=== PATIENT | male | born 1960 | race Caucasian/White ===

== ENCOUNTER → 2016-07-25 | Outpatient (CLI) | payer BC ==
[~2016-07-25] MED LIST: FERROUS SU325 MG/TAB PO; FLEXERIL 1010 MG/TAB PO; MOBIC15 MG PO; NEURONTIN300 MG/CAP PO; NIFEREX-15150 MG/CAP PO; NORCO 325 MG-7.1 TAB PO; PERCOCET 325 MG1 TA2 PO; PROTONIX 40MG T40 MG PO; ULTRAM 50MG TAB50 MG PO
== END ==
LOC: COL.RAD 13:00
DX: I77.810 Thoracic aortic ectasia (principal); M54.6 Pain in thoracic spine
CPT/HCPCS: Q9967

== ENCOUNTER 2016-08-17 23:04 | Emergency (ER) | payer BC ==
[~2016-08-17] VITALS: Ht 175.3 cm; Wt 74.5 kg
[2016-08-17 23:07] VITALS: BP 141/88; TEMP 97.7
[2016-08-17] MEDS ORDERED: FLEXERIL 1010 MG/TAB PO (23:20)
[2016-08-17] MEDS ORDERED: NORCO 325 MG-7.1 TAB PO (23:20)
[2016-08-17] MEDS ORDERED: MOBIC15 MG PO (23:21)
[2016-08-17] MEDS ORDERED: NEURONTIN300 MG/CAP PO (23:58)
[2016-08-17] MEDS ORDERED: ULTRAM 50MG TAB50 MG PO (23:58)
[2016-08-17] MEDS ORDERED: PERCOCET 325 MG1 TA2 PO (23:58)
[2016-08-18 00:25] VITALS: PULSE 56
== END 2016-08-18 00:25 | disposition home or self-care (01) ==
LOC: COL.ER 23:04
DX: M54.89 Other dorsalgia (principal)
CPT/HCPCS: J1885

== ENCOUNTER 2016-08-21 18:48 | Inpatient (IN) | payer BC ==
[~2016-08-21] VITALS: Ht 175.3 cm; Wt 78.6 kg
[~2016-08-21 18:48] MED LIST changes: -FERROUS SU325 MG/TAB PO; -NIFEREX-15150 MG/CAP PO; -PROTONIX 40MG T40 MG PO
[2016-08-21 19:15] VITALS: BP 111/66; PULSE 77
[2016-08-21 19:22] LABS: BASO # 0.1 (0.0-0.2); BASO % 0.3 % (0.0-2.0); EOS % 0.2 % (0-4.0); GRAN # 13.3 (1.4-6.5); GRAN % 82.9 % (42.2-75.2); HEMATOCRIT 28.9 % (42.0-52.0); LYMPH # 1.3 (1.2-3.4); LYMPH % 7.9 % (20.0-51.0); MEAN CELL VOLUME 100 fl (80.0-100.0); MEAN CORPUSCULAR HEMOGLOBIN 35 pg (27.0-31.0); MEAN CORPUSCULAR HGB CONC 35 g/dl (33.0-37.0); MEAN PLATELET VOLUME 8.4 fl (7.4-10.4); MONO # 1.3 (0.1-0.6); MONO % 8.1 % (1.7-9.3); PLATELET COUNT 266 K/mm3 (130-400); RED BLOOD COUNT 2.88 M/mm3 (4.20-5.60); REDCELL DISTRIBUTION WIDTH-CV 12.6 % (11.5-14.5); WHITE BLOOD COUNT 16.1 K/mm3 (4.8-10.8)
[2016-08-21 19:24] LABS: INR 1.1 (0.8-3.0); PROTHROMBIN TIME 12.5 SECONDS (9.7-12.8)
[2016-08-21 19:26] LABS: PARTIAL THROMBOPLASTIN TIME 31.6 SECONDS (26.0-37.0)
[2016-08-21 19:28] LABS: ADJUSTED CALCIUM 9.5 mg/dL (8.4-10.2); ALBUMIN 2.8 gm/dL (3.5-5.0); BILIRUBIN,TOTAL 0.4 mg/dL (0.0-1.0); CALCIUM 8.5 mg/dL (8.4-10.2); CREATININE, serum 0.97 mg/dL (0.66-1.25); POTASSIUM 4.6 mmol/L (3.4-5.0); TOTAL PROTEIN 5.3 gm/dL (6.4-8.2)
[2016-08-21 19:40] LABS: TROPONIN-I 0.013 ng/mL (0.000-0.034)
[2016-08-21 20:16] VITALS: BP 120/72; PULSE 78
[2016-08-22] VITALS (317 sets, daily range): BP systolic 83–123; BP diastolic 33–74; PULSE 71–89; TEMP 97–99.4; O2SAT 76–100
[2016-08-22 07:54] LABS: BASO % 0.4 % (0.0-2.0); EOS # 0.1 (0.0-0.7); EOS % 1.3 % (0-4.0); GRAN # 5.6 (1.4-6.5); GRAN % 68.2 % (42.2-75.2); LYMPH # 1.7 (1.2-3.4); LYMPH % 20.3 % (20.0-51.0); MEAN CELL VOLUME 101 fl (80.0-100.0); MEAN CORPUSCULAR HGB CONC 34 g/dl (33.0-37.0); MEAN PLATELET VOLUME 8.5 fl (7.4-10.4); MONO # 0.8 (0.1-0.6); MONO % 9.3 % (1.7-9.3); PLATELET COUNT 233 K/mm3 (130-400); RED BLOOD COUNT 2.32 M/mm3 (4.20-5.60); REDCELL DISTRIBUTION WIDTH-CV 12.9 % (11.5-14.5); WHITE BLOOD COUNT 8.3 K/mm3 (4.8-10.8)
[2016-08-22 07:56] LABS: HEMATOCRIT 23.4 % (42.0-52.0); HEMOGLOBIN 7.9 g/dl (13.5-18.0); MEAN CORPUSCULAR HEMOGLOBIN 34 pg (27.0-31.0)
[2016-08-22 09:40] LABS: CALCIUM 8.2 mg/dL (8.4-10.2); CREATININE, serum 0.75 mg/dL (0.66-1.25); POTASSIUM 4.2 mmol/L (3.4-5.0)
[2016-08-22 18:51] LABS: HEMOGLOBIN 4.7 g/dl (13.5-18.0)
[2016-08-23] VITALS (1198 sets, daily range): BP systolic 86–133; BP diastolic 4–79; PULSE 53–84; TEMP 98.5–99.7; O2SAT 80–100
[2016-08-23 03:24] LABS: HEMATOCRIT 22.8 % (42.0-52.0); HEMOGLOBIN 7.7 g/dl (13.5-18.0)
[2016-08-23 08:05] LABS: BASO # 0.1 (0.0-0.2); BASO % 0.6 % (0.0-2.0); EOS # 0.1 (0.0-0.7); EOS % 1.1 % (0-4.0); GRAN # 6.3 (1.4-6.5); GRAN % 69.4 % (42.2-75.2); LYMPH # 1.8 (1.2-3.4); LYMPH % 19.4 % (20.0-51.0); MEAN CORPUSCULAR HGB CONC 35 g/dl (33.0-37.0); MEAN PLATELET VOLUME 9.4 fl (7.4-10.4); MONO # 0.8 (0.1-0.6); MONO % 8.8 % (1.7-9.3); RED BLOOD COUNT 2.43 M/mm3 (4.20-5.60); REDCELL DISTRIBUTION WIDTH-CV 17.4 % (11.5-14.5); WHITE BLOOD COUNT 9.1 K/mm3 (4.8-10.8)
[2016-08-23 08:10] LABS: HEMATOCRIT 21.7 % (42.0-52.0); HEMOGLOBIN 7.5 g/dl (13.5-18.0); MEAN CELL VOLUME 89 fl (80.0-100.0); MEAN CORPUSCULAR HEMOGLOBIN 31 pg (27.0-31.0)
[2016-08-23 08:11] LABS: PLATELET COUNT 132 K/mm3 (130-400)
[2016-08-23 08:12] LABS: ADJUSTED CALCIUM 9.1 mg/dL (8.4-10.2); ALBUMIN 1.6 gm/dL (3.5-5.0); BILIRUBIN,TOTAL 0.7 mg/dL (0.0-1.0); CALCIUM 7.2 mg/dL (8.4-10.2); CREATININE, serum 0.8 mg/dL (0.66-1.25); MAGNESIUM 1.7 mg/dL (1.6-2.3); POTASSIUM 4.2 mmol/L (3.4-5.0); TOTAL PROTEIN 3.4 gm/dL (6.4-8.2)
[2016-08-23 15:04] LABS: HEMATOCRIT 21.4 % (42.0-52.0); HEMOGLOBIN 7.2 g/dl (13.5-18.0)
[2016-08-23 21:42] LABS: HEMATOCRIT 19.8 % (42.0-52.0); HEMOGLOBIN 6.6 g/dl (13.5-18.0)
[2016-08-24] VITALS (1017 sets, daily range): BP systolic 67–116; BP diastolic 50–80; PULSE 57–78; TEMP 97.8–98.9; O2SAT 67–100
[2016-08-24 01:07] LABS: HEMATOCRIT 22.1 % (42.0-52.0); HEMOGLOBIN 7.5 g/dl (13.5-18.0)
[2016-08-24 03:15] LABS: BASO # 0.1 (0.0-0.2); BASO % 0.6 % (0.0-2.0); EOS # 0.3 (0.0-0.7); EOS % 2.3 % (0-4.0); GRAN # 5.5 (1.4-6.5); GRAN % 51.1 % (42.2-75.2); LYMPH # 4.1 (1.2-3.4); LYMPH % 37.6 % (20.0-51.0); MEAN CELL VOLUME 91 fl (80.0-100.0); MEAN CORPUSCULAR HGB CONC 33 g/dl (33.0-37.0); MEAN PLATELET VOLUME 9.5 fl (7.4-10.4); MONO # 0.9 (0.1-0.6); MONO % 7.8 % (1.7-9.3); PLATELET COUNT 144 K/mm3 (130-400); RED BLOOD COUNT 2.46 M/mm3 (4.20-5.60); REDCELL DISTRIBUTION WIDTH-CV 17.4 % (11.5-14.5); WHITE BLOOD COUNT 10.8 K/mm3 (4.8-10.8)
[2016-08-24 03:16] LABS: HEMATOCRIT 22.3 % (42.0-52.0); HEMOGLOBIN 7.4 g/dl (13.5-18.0); MEAN CORPUSCULAR HEMOGLOBIN 30 pg (27.0-31.0)
[2016-08-24 03:33] LABS: TROPONIN-I 0.015 ng/mL (0.000-0.034)
[2016-08-24 07:55] LABS: CALCIUM 6.8 mg/dL (8.4-10.2); CREATININE, serum 0.68 mg/dL (0.66-1.25); MAGNESIUM 1.5 mg/dL (1.6-2.3)
[2016-08-24 08:00] LABS: BASO % 0.2 % (0.0-2.0); EOS # 0.1 (0.0-0.7); EOS % 1.2 % (0-4.0); GRAN # 8.2 (1.4-6.5); GRAN % 73.2 % (42.2-75.2); LYMPH # 1.9 (1.2-3.4); LYMPH % 16.8 % (20.0-51.0); MEAN CELL VOLUME 92 fl (80.0-100.0); MEAN CORPUSCULAR HGB CONC 33 g/dl (33.0-37.0); MEAN PLATELET VOLUME 9.7 fl (7.4-10.4); MONO # 0.9 (0.1-0.6); MONO % 7.8 % (1.7-9.3); PLATELET COUNT 123 K/mm3 (130-400); REDCELL DISTRIBUTION WIDTH-CV 17.3 % (11.5-14.5); WHITE BLOOD COUNT 11.3 K/mm3 (4.8-10.8)
[2016-08-24 08:07] LABS: HEMATOCRIT 14.7 % (42.0-52.0); HEMOGLOBIN 4.9 g/dl (13.5-18.0); MEAN CORPUSCULAR HEMOGLOBIN 31 pg (27.0-31.0)
[2016-08-24 18:05] LABS: HEMATOCRIT 22.3 % (42.0-52.0); HEMOGLOBIN 7.7 g/dl (13.5-18.0)
[2016-08-25] VITALS (864 sets, daily range): BP systolic 105–117; BP diastolic 45–70; PULSE 56–92; TEMP 97.5–99.6; O2SAT 65–100
[2016-08-25 00:19] LABS: HEMATOCRIT 19.6 % (42.0-52.0); HEMOGLOBIN 6.8 g/dl (13.5-18.0)
[2016-08-25 05:26] LABS: ADD PATHOLOGY DIFF REVIEW NO
[2016-08-25 05:34] LABS: HEMATOCRIT 20.5 % (42.0-52.0); MEAN CELL VOLUME 90 fl (80.0-100.0); MEAN CORPUSCULAR HEMOGLOBIN 31 pg (27.0-31.0); MEAN CORPUSCULAR HGB CONC 34 g/dl (33.0-37.0); MEAN PLATELET VOLUME 10.1 fl (7.4-10.4); PLATELET COUNT 169 K/mm3 (130-400); RED BLOOD COUNT 2.29 M/mm3 (4.20-5.60); REDCELL DISTRIBUTION WIDTH-CV 15.9 % (11.5-14.5); WHITE BLOOD COUNT 16.2 K/mm3 (4.8-10.8)
[2016-08-25 05:40] LABS: CREATININE, serum 0.74 mg/dL (0.66-1.25); MAGNESIUM 1.8 mg/dL (1.6-2.3); POTASSIUM 4.2 mmol/L (3.4-5.0)
[2016-08-25 05:47] LABS: BAND 14 % (0-10); NEUTROPHILS 73 % (42.0-75.2); PLATELET ESTIMATE NORMAL (NORMAL); TOTAL CELLS COUNTED 100
[2016-08-25 16:15] LABS: HEMATOCRIT 18.9 % (42.0-52.0); HEMOGLOBIN 6.4 g/dl (13.5-18.0)
[2016-08-26] VITALS (12 sets, daily range): BP systolic 108–127; BP diastolic 52–63; PULSE 74–94; TEMP 97.9–99.6
[2016-08-26 07:41] LABS: MEAN CELL VOLUME 89 fl (80.0-100.0); MEAN CORPUSCULAR HGB CONC 35 g/dl (33.0-37.0); MEAN PLATELET VOLUME 9.7 fl (7.4-10.4); PLATELET COUNT 179 K/mm3 (130-400); RED BLOOD COUNT 2.14 M/mm3 (4.20-5.60); REDCELL DISTRIBUTION WIDTH-CV 15.8 % (11.5-14.5); WHITE BLOOD COUNT 11.3 K/mm3 (4.8-10.8)
[2016-08-26 07:48] LABS: ADD PATHOLOGY DIFF REVIEW NO; HEMATOCRIT 19.1 % (42.0-52.0); HEMOGLOBIN 6.6 g/dl (13.5-18.0); MEAN CORPUSCULAR HEMOGLOBIN 31 pg (27.0-31.0)
[2016-08-26 08:00] LABS: CREATININE, serum 0.7 mg/dL (0.66-1.25); MAGNESIUM 1.8 mg/dL (1.6-2.3); POTASSIUM 3.6 mmol/L (3.4-5.0)
[2016-08-26 08:54] LABS: ANISOCYTOSIS 1+; BAND 3 % (0-10); HYPOCHROMIA 2+; NEUTROPHILS 85 % (42.0-75.2); TOTAL CELLS COUNTED 100
[2016-08-26 20:53] LABS: HEMATOCRIT 20.4 % (42.0-52.0)
[2016-08-27] VITALS (7 sets, daily range): BP systolic 119–138; BP diastolic 47–75; PULSE 70–78; TEMP 97.9–98.7
[2016-08-27 07:36] LABS: BASO % 0.2 % (0.0-2.0); EOS # 0.2 (0.0-0.7); EOS % 1.6 % (0-4.0); GRAN # 7.4 (1.4-6.5); GRAN % 78.4 % (42.2-75.2); LYMPH # 0.8 (1.2-3.4); LYMPH % 8.5 % (20.0-51.0); MEAN CELL VOLUME 89 fl (80.0-100.0); MEAN CORPUSCULAR HGB CONC 34 g/dl (33.0-37.0); MEAN PLATELET VOLUME 9.3 fl (7.4-10.4); MONO % 10.2 % (1.7-9.3); PLATELET COUNT 230 K/mm3 (130-400); RED BLOOD COUNT 2.34 M/mm3 (4.20-5.60); REDCELL DISTRIBUTION WIDTH-CV 15.2 % (11.5-14.5); WHITE BLOOD COUNT 9.4 K/mm3 (4.8-10.8)
[2016-08-27 07:37] LABS: HEMATOCRIT 20.9 % (42.0-52.0); HEMOGLOBIN 7.1 g/dl (13.5-18.0); MEAN CORPUSCULAR HEMOGLOBIN 30 pg (27.0-31.0)
[2016-08-27 07:46] LABS: CALCIUM 7.4 mg/dL (8.4-10.2); CREATININE, serum 0.62 mg/dL (0.66-1.25); POTASSIUM 3.4 mmol/L (3.4-5.0)
[2016-08-28] VITALS (13 sets, daily range): BP systolic 114–134; BP diastolic 56–72; PULSE 63–79; TEMP 97.9–99.2
[2016-08-28 07:14] LABS: HEMATOCRIT 19.5 % (42.0-52.0); HEMOGLOBIN 6.6 g/dl (13.5-18.0)
[2016-08-28 07:30] LABS: CALCIUM 7.4 mg/dL (8.4-10.2); CREATININE, serum 0.64 mg/dL (0.66-1.25); POTASSIUM 3.2 mmol/L (3.4-5.0)
[2016-08-28 19:32] LABS: HEMOGLOBIN 8.4 g/dl (13.5-18.0)
[2016-08-29 05:24] VITALS: BP 139/79; PULSE 61; TEMP 99
[2016-08-29 06:51] LABS: BASO % 0.5 % (0.0-2.0); EOS # 0.4 (0.0-0.7); EOS % 5.3 % (0-4.0); GRAN # 5.1 (1.4-6.5); GRAN % 67.5 % (42.2-75.2); LYMPH % 13.4 % (20.0-51.0); MEAN CELL VOLUME 90 fl (80.0-100.0); MEAN CORPUSCULAR HGB CONC 34 g/dl (33.0-37.0); MONO % 12.8 % (1.7-9.3); PLATELET COUNT 323 K/mm3 (130-400); RED BLOOD COUNT 2.79 M/mm3 (4.20-5.60); REDCELL DISTRIBUTION WIDTH-CV 14.6 % (11.5-14.5); WHITE BLOOD COUNT 7.6 K/mm3 (4.8-10.8)
[2016-08-29 06:57] LABS: HEMOGLOBIN 8.4 g/dl (13.5-18.0); MEAN CORPUSCULAR HEMOGLOBIN 30 pg (27.0-31.0)
[2016-08-29 07:19] LABS: CALCIUM 7.9 mg/dL (8.4-10.2); CREATININE, serum 0.63 mg/dL (0.66-1.25); POTASSIUM 3.6 mmol/L (3.4-5.0)
[2016-08-29] MEDS ORDERED: FERROUS SU325 MG/TAB PO (08:36)
[2016-08-29] MEDS ORDERED: NIFEREX-15150 MG/CAP PO (09:09)
[2016-08-29] MEDS ORDERED: PROTONIX 40MG T40 MG PO (09:10)
[2016-08-29 10:40] VITALS: BP 135/73; PULSE 63; TEMP 98.9
== END 2016-08-29 11:02 | disposition home or self-care (01) | DRG 326 ==
LOC: COL.ER 18:48 → MEDICAL 22:26 → COL.ER 22:26 → MEDICAL 22:26 → ICU 08-22 16:00 → SURG 08-25 15:40
PROVIDERS: Emergency Medicine; Family Medicine; Internal Medicine; Nurse Practitioner Family; Physician Assistant; Surgery
PROC: 0W3P8ZZ Control Bleeding in Gastrointestinal Tract, Via Natural or Artificial Opening Endoscopic (ICD-10-PCS; 2016-08-22)
PROC: 3E0G8GC Introduction of Other Therapeutic Substance into Upper GI, Via Natural or Artificial Opening Endoscopic (ICD-10-PCS; 2016-08-22)
PROC: 02HV33Z Insertion of Infusion Device into Superior Vena Cava, Percutaneous Approach (ICD-10-PCS; 2016-08-24)
PROC: 0D160Z9 Bypass Stomach to Duodenum, Open Approach (ICD-10-PCS; principal; 2016-08-24 14:00)
PROC: 008Q0ZZ Division of Vagus Nerve, Open Approach (ICD-10-PCS; 2016-08-24 14:00)
DX: K26.0 Acute duodenal ulcer with hemorrhage (principal); I21.4 Non-ST elevation (NSTEMI) myocardial infarction; D62 Acute posthemorrhagic anemia; E87.1 Hypo-osmolality and hyponatremia; F17.210 Nicotine dependence, cigarettes, uncomplicated; R56.9 Unspecified convulsions; T40.4X5A Adverse effect of other synthetic narcotics, initial encounter; E83.42 Hypomagnesemia; F10.10 Alcohol abuse, uncomplicated; R55 Syncope and collapse
CPT/HCPCS: 99222-AI; 99232-AI; 99233-AI; 99239; A4315; A9284; C1751; C9113; J0171; J1100; J1170; J1644; J1650; J1940; J2250; J2354; J2405; J2704; J2795; J2916; J3010; J3475; J7030; J7040; J7050; J7120; P9016; Q9967

== ENCOUNTER → 2016-09-08 | Outpatient (CLI) | payer BC ==
[~2016-09-08] MED LIST changes: +FERROUS SU325 MG/TAB PO; +NIFEREX-15150 MG/CAP PO; +PROTONIX 40MG T40 MG PO
== END ==
LOC: COL.VAS 12:05
DX: I82.491 Acute embolism and thrombosis of other specified deep vein of right lower extremity (principal); M79.89 Other specified soft tissue disorders

== ENCOUNTER 2017-03-22 10:20 | Emergency (ER) | payer BC ==
[~2017-03-22] VITALS: Ht 175.3 cm; Wt 79.5 kg
[2017-03-22 10:25] VITALS: TEMP 97
[2017-03-22 10:52] LABS: ADD PATHOLOGY DIFF REVIEW NO
[2017-03-22 10:59] LABS: HEMATOCRIT 46.6 % (42.0-52.0); HEMOGLOBIN 16.8 g/dl (13.5-18.0); MEAN CELL VOLUME 94 fl (80.0-100.0); MEAN CORPUSCULAR HEMOGLOBIN 34 pg (27.0-31.0); MEAN CORPUSCULAR HGB CONC 36 g/dl (33.0-37.0); MEAN PLATELET VOLUME 8.2 fl (7.4-10.4); PLATELET COUNT 375 K/mm3 (130-400); RED BLOOD COUNT 4.94 M/mm3 (4.20-5.60); WHITE BLOOD COUNT 8.9 K/mm3 (4.8-10.8)
[2017-03-22 11:07] LABS: ADJUSTED CALCIUM 9.1 mg/dL (8.4-10.2); ALBUMIN 4.8 gm/dL (3.5-5.0); BILIRUBIN,TOTAL 0.7 mg/dL (0.0-1.0); CALCIUM 9.7 mg/dL (8.4-10.2); CREATININE, serum 0.91 mg/dL (0.66-1.25); POTASSIUM 3.8 mmol/L (3.4-5.0)
[2017-03-22 11:35] VITALS: BP 190/145; PULSE 77
[2017-03-22 11:35] LABS: BAND 3 % (0-10); EOSINOPHIL 1 % (0-4); LYMPHOCYTE 21 % (20.0-51.0); NEUTROPHILS 72 % (42.0-75.2); PLATELET ESTIMATE NORMAL (NORMAL); TOTAL CELLS COUNTED 100
[2017-03-22 12:08] LABS: INR 0.9 (0.8-3.0); PROTHROMBIN TIME 10.9 SECONDS (9.7-12.8)
== END 2017-03-22 12:18 | disposition short-term general hospital (02) ==
LOC: COL.ER 10:20
PROVIDERS: Family Medicine
DX: I74.3 Embolism and thrombosis of arteries of the lower extremities (principal); K21.9 Gastro-esophageal reflux disease without esophagitis; F17.210 Nicotine dependence, cigarettes, uncomplicated; Z86.718 Personal history of other venous thrombosis and embolism
CPT/HCPCS: J1170; J1644; J2405; J7030

== ENCOUNTER 2017-04-10 06:40 | Day surgery (SDC) | payer BC ==
[~2017-04-10] VITALS: Ht 172.7 cm; Wt 75.0 kg
[2017-04-10 06:53] VITALS: BP 105/61; PULSE 65; TEMP 98.6
[2017-04-10] MEDS ORDERED: CIPRO 250MG TA250 MG PO (07:16)
[2017-04-10] MEDS ORDERED: COUMADIN 5MG5 MG/TAB PO (07:17)
[2017-04-10] MEDS ORDERED: NORCO 325 MG-7.1 TAB PO (07:18)
[2017-04-10] MEDS ORDERED: FOLIC ACID 11 MG/TA1 PO (07:19)
[2017-04-10] MEDS ORDERED: PROTONIX 40MG T40 MG PO (07:19)
[2017-04-10] MEDS ORDERED: ASPIRIN E.C. 8181 MG PO (07:21)
[2017-04-10] MEDS ORDERED: MULTI VITAMINS1 TAB PO (07:21)
[2017-04-10] MEDS ORDERED: NATURE'S BLEND100 M2 PO (07:22)
[2017-04-10] MEDS ORDERED: ACIDOPHILIS PO (07:23)
[2017-04-10 09:25] VITALS: BP 121/75; PULSE 58; TEMP 97.4
[2017-04-10 10:15] VITALS: BP 142/74; PULSE 45
== END 2017-04-10 10:15 | disposition home or self-care (01) ==
LOC: SDCO 06:40
DX: T81.89XA Other complications of procedures, not elsewhere classified, initial encounter (principal); I73.9 Peripheral vascular disease, unspecified; Z79.01 Long term (current) use of anticoagulants; F17.210 Nicotine dependence, cigarettes, uncomplicated
CPT/HCPCS: J0690; J2250; J2704; J3010; J7120

== ENCOUNTER 2017-05-06 09:37 | Day surgery (SDC) | payer BC ==
[~2017-05-06] VITALS: Ht 177.8 cm; Wt 77.2 kg
[~2017-05-06 09:37] MED LIST changes: +ACIDOPHILIS PO; +ASPIRIN E.C. 8181 MG PO; +CIPRO 250MG TA250 MG PO; +COUMADIN 5MG5 MG/TAB PO; +FOLIC ACID 11 MG/TA1 PO; +MULTI VITAMINS1 TAB PO; +NATURE'S BLEND100 M2 PO
[2017-05-06 10:10] VITALS: BP 125/73; PULSE 60; TEMP 98.1
[2017-05-06] MEDS ORDERED: AMOXICILLIN 8751 TAB PO (10:24)
[2017-05-06] MEDS ORDERED: FLAGYL500 MG PO (10:25)
[2017-05-06 12:15] VITALS: BP 149/74; PULSE 44; TEMP 98.5
[2017-05-06 12:30] VITALS: BP 136/75; PULSE 44
[2017-05-06 12:45] VITALS: BP 130/72; PULSE 45
[2017-05-06 13:00] VITALS: BP 143/71; PULSE 46
[2017-05-06 13:30] VITALS: BP 148/77; PULSE 46
== END 2017-05-06 13:42 | disposition home or self-care (01) ==
LOC: SDCO 09:37
DX: L92.8 Other granulomatous disorders of the skin and subcutaneous tissue (principal); I73.9 Peripheral vascular disease, unspecified; F17.210 Nicotine dependence, cigarettes, uncomplicated; Z79.01 Long term (current) use of anticoagulants
CPT/HCPCS: J0690; J1100; J1885; J2405; J2704; J3010; J7120

== ENCOUNTER → 2017-06-05 | Outpatient (CLI) | payer BC ==
[~2017-06-05] MED LIST changes: +AMOXICILLIN 8751 TAB PO; +FLAGYL500 MG PO
== END ==
LOC: ZCOL.LAB 14:03
DX: S81.802A Unspecified open wound, left lower leg, initial encounter (principal)

== ENCOUNTER → 2017-06-10 | Outpatient (CLI) | payer BC ==
[2017-06-10 08:31] LABS: PROTHROMBIN TIME 23.2 SECONDS (9.7-12.8)
== END ==
LOC: COL.LAB 08:02
DX: T79.A22A Traumatic compartment syndrome of left lower extremity, initial encounter (principal); I99.8 Other disorder of circulatory system; Z79.01 Long term (current) use of anticoagulants; Z98.890 Other specified postprocedural states

== ENCOUNTER 2018-08-29 22:45 | Emergency (ER) | payer BC ==
[~2018-08-29] VITALS: Ht 175.3 cm; Wt 79.5 kg
[2018-08-29 22:49] VITALS: TEMP 98.9
[2018-08-29 23:23] LABS: BASO % 0.5 % (0.0-2.0); EOS # 0.2 (0.0-0.7); EOS % 2.8 % (0-4.0); GRAN # 3.7 (1.4-6.5); GRAN % 49.2 % (42.2-75.2); HEMATOCRIT 43.5 % (42.0-52.0); HEMOGLOBIN 15.8 g/dl (13.5-18.0); LYMPH # 2.8 (1.2-3.4); LYMPH % 36.9 % (20.0-51.0); MEAN CELL VOLUME 97 fl (80.0-100.0); MEAN CORPUSCULAR HEMOGLOBIN 35 pg (27.0-31.0); MEAN CORPUSCULAR HGB CONC 36 g/dl (33.0-37.0); MEAN PLATELET VOLUME 8.3 fl (7.4-10.4); MONO # 0.8 (0.1-0.6); MONO % 10.3 % (1.7-9.3); PLATELET COUNT 228 K/mm3 (130-400); RED BLOOD COUNT 4.51 M/mm3 (4.20-5.60); REDCELL DISTRIBUTION WIDTH-CV 12.5 % (11.5-14.5)
[2018-08-29 23:33] LABS: PROTHROMBIN TIME 23.1 SECONDS (9.7-12.8)
[2018-08-29 23:36] LABS: CALCIUM 8.9 mg/dL (8.4-10.2); CREATININE, serum 0.59 (0.66-1.25); PARTIAL THROMBOPLASTIN TIME 46.1 SECONDS (26.0-37.0); POTASSIUM 3.9 mmol/L (3.4-5.0)
[2018-08-29 23:48] LABS: BILIRUBIN,TOTAL 0.5 mg/dL (0.0-1.0); TOTAL PROTEIN 7.1 gm/dL (6.4-8.2)
[2018-08-29 23:57] LABS: BILIRUBIN UNCONJUGATED 0.3 mg/dL (0.0-1.1); BILIRUBIN,DIRECT 0.1 mg/dL (0.0-0.4)
[2018-08-30 01:07] VITALS: BP 159/88; PULSE 61
== END 2018-08-30 01:21 | disposition home or self-care (01) ==
LOC: COL.ER 22:45
PROVIDERS: Emergency Medicine
DX: M79.662 Pain in left lower leg (principal); Z79.01 Long term (current) use of anticoagulants; Z86.718 Personal history of other venous thrombosis and embolism; Z98.890 Other specified postprocedural states

== ENCOUNTER → 2018-08-31 | Outpatient (CLI) | payer BC | LOC: COL.VAS 14:00 | DX: M79.662 Pain in left lower leg (principal); T82.868A Thrombosis due to vascular prosthetic devices, implants and grafts, initial encounter; Z86.79 Personal history of other diseases of the circulatory system; Z95.1 Presence of aortocoronary bypass graft ==

== ENCOUNTER 2020-01-17 03:02 | Emergency (ER) | payer BC ==
[~2020-01-17] VITALS: Ht 177.8 cm; Wt 79.5 kg
[2020-01-17 03:12] VITALS: BP 104/62; TEMP 98.8
[2020-01-17 09:57] LABS: BASO % 0.6 % (0.0-2.0); EOS # 0.1 (0.0-0.7); EOS % 0.9 % (0-4.0); GRAN % 60.1 % (42.2-75.2); HEMOGLOBIN 16.3 g/dl (13.5-18.0); LYMPH # 1.6 (1.2-3.4); LYMPH % 24.5 % (20.0-51.0); MEAN CELL VOLUME 99 fl (80.0-100.0); MEAN CORPUSCULAR HEMOGLOBIN 35 pg (27.0-31.0); MEAN CORPUSCULAR HGB CONC 35 g/dl (33.0-37.0); MEAN PLATELET VOLUME 8.4 fl (7.4-10.4); MONO # 0.9 (0.1-0.6); MONO % 13.7 % (1.7-9.3); PLATELET COUNT 250 K/mm3 (130-400); RED BLOOD COUNT 4.65 M/mm3 (4.20-5.60); REDCELL DISTRIBUTION WIDTH-CV 13.1 % (11.5-14.5)
[2020-01-17 10:02] LABS: CALCIUM 9.3 mg/dL (8.4-10.2); CREATININE, serum 0.75 (0.66-1.25); POTASSIUM 4.5 mmol/L (3.4-5.0)
[2020-01-17 10:25] LABS: INR 0.9 (0.8-3.0); PROTHROMBIN TIME 10.4 SECONDS (9.7-12.8)
[2020-01-17 10:28] LABS: PARTIAL THROMBOPLASTIN TIME 39.3 SECONDS (26.0-37.0)
[2020-01-17] MEDS ORDERED: FLEXERIL 1010 MG/TAB PO (13:54)
[2020-01-17 14:36] VITALS: PULSE 69
== END 2020-01-17 14:36 | disposition home or self-care (01) ==
LOC: COL.ER 03:02
PROVIDERS: Emergency Medicine
DX: M79.662 Pain in left lower leg (principal); F17.210 Nicotine dependence, cigarettes, uncomplicated; Z86.718 Personal history of other venous thrombosis and embolism
CPT/HCPCS: J1170; J3010; Q9967

== ENCOUNTER 2021-02-22 22:50 | Emergency (ER) | payer BC ==
[~2021-02-22] VITALS: Ht 177.8 cm; Wt 81.8 kg
[2021-02-23 01:28] LABS: BASO # 0.1 K/mm3 (0.0-0.2); BASO % 0.8 % (0.0-2.0); EOS % 0.5 % (0-4.0); GRAN # 5.2 K/mm3 (1.4-6.5); GRAN % 67.8 % (42.2-75.2); HEMATOCRIT 42.7 % (42.0-52.0); HEMOGLOBIN 15.4 g/dl (13.5-18.0); LYMPH # 1.4 K/mm3 (1.2-3.4); MEAN CELL VOLUME 98 fl (80.0-100.0); MEAN CORPUSCULAR HEMOGLOBIN 36 pg (27.0-31.0); MEAN CORPUSCULAR HGB CONC 36 g/dl (33.0-37.0); MEAN PLATELET VOLUME 8.1 fl (7.4-10.4); MONO # 0.9 K/mm3 (0.1-0.6); MONO % 11.5 % (1.7-9.3); PLATELET COUNT 241 K/mm3 (130-400); RED BLOOD COUNT 4.34 M/mm3 (4.20-5.60); REDCELL DISTRIBUTION WIDTH-CV 13.2 % (11.5-14.5)
[2021-02-23 01:45] LABS: ALBUMIN 4.4 gm/dL (3.5-5.0); BILIRUBIN,TOTAL 0.9 mg/dL (0.2-1.2); CREATININE, serum 0.78 mg/dL (0.72-1.25); POTASSIUM 4.3 mmol/L (3.5-4.5); TOTAL PROTEIN 7.9 gm/dL (6.2-8.1)
[2021-02-23 02:50] VITALS: BP 163/83; PULSE 81; TEMP 98.2
[2021-02-23] MEDS ORDERED: PERCOCET 325 MG1 TA2 PO (10:30)
== END 2021-02-23 02:50 | disposition home or self-care (01) ==
LOC: COL.ER 22:50
PROVIDERS: Nurse Practitioner
DX: M79.662 Pain in left lower leg (principal); F17.210 Nicotine dependence, cigarettes, uncomplicated
CPT/HCPCS: J1650

== ENCOUNTER 2021-02-23 09:00 | Emergency (ER) | payer SELFPAY ==
[~2021-02-23] VITALS: Ht 175.3 cm; Wt 84.1 kg
[2021-02-23 09:10] VITALS: TEMP 98.4
[2021-02-23] MEDS ORDERED: PERCOCET 325 MG1 TA2 PO (10:30)
[2021-02-23 10:36] VITALS: BP 151/87; PULSE 78
== END 2021-02-23 10:39 | disposition home or self-care (01) ==
LOC: COL.ER 09:00
DX: I73.9 Peripheral vascular disease, unspecified (principal)

== ENCOUNTER → 2021-02-23 | Outpatient (CLI) | payer BC | LOC: COL.RAD 08:04 | DX: M79.605 Pain in left leg (principal) ==

== ENCOUNTER 2022-07-04 17:50 | Emergency (ER) | payer SELFPAY ==
[~2022-07-04] VITALS: Ht 175.3 cm; Wt 84.1 kg
[2022-07-04 17:59] VITALS: TEMP 98.2
[2022-07-04 19:16] LABS: PROTHROMBIN TIME 11.8 SECONDS (9.7-12.8)
[2022-07-04 19:21] LABS: BASO % 0.5 % (0.0-2.0); EOS % 0.2 % (0.0-4.0); GRAN # 5.9 K/mm3 (1.4-6.5); GRAN % 73.3 % (42.2-75.2); HEMATOCRIT 39.4 % (42.0-52.0); LYMPH % 12.4 % (20.0-51.0); MEAN CELL VOLUME 92 fl (80.0-100.0); MEAN CORPUSCULAR HEMOGLOBIN 35 pg (27-31); MEAN CORPUSCULAR HGB CONC 39 g/dl (33.0-37.0); MEAN PLATELET VOLUME 8.4 fl (7.4-10.4); MONO # 1.1 K/mm3 (0.1-0.6); PLATELET COUNT 214 K/mm3 (130-400); RED BLOOD COUNT 4.29 M/mm3 (4.20-5.60); REDCELL DISTRIBUTION WIDTH-CV 12.1 % (11.5-14.5)
[2022-07-04 19:22] LABS: HEMOGLOBIN 15.2 g/dl (13.5-18.0)
[2022-07-04 19:29] LABS: ALBUMIN 4.7 gm/dL (3.4-4.8); BILIRUBIN,TOTAL 1.7 mg/dL (0.2-1.2); CALCIUM 9.2 mg/dL (8.4-10.2); CREATININE, serum 0.66 mg/dL (0.72-1.25); POTASSIUM 3.6 mmol/L (3.5-4.5); TOTAL PROTEIN 7.9 gm/dL (6.2-8.1)
[2022-07-04 22:15] LABS: HEMATOCRIT 44.1 % (42.0-52.0); MEAN CELL VOLUME 92 fl (80.0-100.0); MEAN CORPUSCULAR HEMOGLOBIN 36 pg (27-31); MEAN CORPUSCULAR HGB CONC 39 g/dl (33.0-37.0); MEAN PLATELET VOLUME 7.9 fl (7.4-10.4); PLATELET COUNT 209 K/mm3 (130-400); RED BLOOD COUNT 4.78 M/mm3 (4.20-5.60)
[2022-07-04 22:49] VITALS: BP 142/95; PULSE 106
== END 2022-07-04 23:00 | disposition short-term general hospital (02) ==
LOC: COL.ER 17:50
PROVIDERS: Family Medicine
DX: I74.3 Embolism and thrombosis of arteries of the lower extremities (principal); I10 Essential (primary) hypertension; E87.1 Hypo-osmolality and hyponatremia; I99.8 Other disorder of circulatory system; R33.9 Retention of urine, unspecified; F17.210 Nicotine dependence, cigarettes, uncomplicated; Z28.310 Unvaccinated for COVID-19
CPT/HCPCS: J1170; J1644; J2270; J2550; J7050; J7120; Q9967